=== PATIENT | female | born 1970 | race Caucasian/White ===

== ENCOUNTER 2020-06-08 08:32 | Emergency (ER) | payer OTHER, SELFPAY ==
[2020-06-08 08:33] VITALS: BP 93/61; PULSE 73; RESP 18; TEMP 36.8; O2SAT 95; BMI 31.7
[2020-06-08 08:40] VITALS: BP 93/61; PULSE 80; RESP 18; O2SAT 93
--- NOTE | 2020-06-08 08:40 | XR_ITS ---
WS: [id number] Exam: XR ankle LT min 3V* [id number] Date/Time of Exam: 06/08/2020 8:45 AM Reason For Exam: pain sweling There is a transverse fracture through the lower fibula with mild lateral displacement of the distal fragment. No other fractures are noted. The ankle mortise remains intact. Lateral soft tissue swellin g. XR/XR ankle LT min 3V* [id number] IMPRESSION: 1. Minimally displaced fracture of the distal fibula and soft tissue swelling.
--- NOTE | 2020-06-08 08:45 | W.ED.EXTPRO ---
HPI - Extremity Problem General: Chief complaint: Extremity Injury, Lower Stated complaint: Fall/left ankle pain Time Seen by Provider: 06/08/20 08:35 History of Present Illness: HPI Narrative: 49-year-old female presents to the emergency room with complaint of left ankle pain. She slept last night in the recliner evidently in a rather awkward position when she went to get up she had some numbness and tingling in her feet this is a fallen asleep . She tried to walk and actually had an inversion ankle injury of her left ankle she fell. She denies striking her head or losing consciousness or any other injury only complaint is the left ankle injury. Is she arrives by ambulance it is wrapped in an Kev wrap. Has mild swelling. MD Complaint: joint swelling and joint pain Onset (ago): minute(s) Pain Consistency: constant Location: left (Ankle) Quality: constant (Throbbing) Radiation: none Relieving factors: immobilization and rest Exacerbating factors: range of motion, weight bearing and palpation Associated symptoms: Deny arthralgias, chest pain, fever(s), myalgias, rash or short of breath Context: immobilization Review of Systems Const: Denies: fever(s) ENMT: Denies: throat pain, ear or mastoid pain, nasal discharge or nasal congestion Card: Denies: chest pain Resp: Denies: dyspnea, productive cough or non-productive cough GI: Denies: abdominal pain, nausea, vomiting, hematemesis, coffee ground emesis, diarrhea, constipation, bloating, hematochezia or melena : Denies: flank pain, difficulty voiding, dysuria, urinary frequency or urinary urgency Skin/Breast: Denies: rash Physical Exam Const: COMMON NORMALS: no acute distress GENERAL APPEARANCE: cooperative and comfortable ORIENTATION/CONSCIOUSNESS: Yes awake, Yes oriented to person, Yes oriented to place and Yes oriented to time HENMT: COMMON NORMALS: normocephalic, atraumatic and hearing grossly normal bilaterally HEAD & SCALP: normocephalic and atraumatic Neck/C-Spine: COMMON NORMALS: no JVD Resp: COMMON NORMALS: normal respiratory effort, No retractions, No use of accessory muscles and clear to auscultation bilaterally AUSCULTATION: clear to auscultation bilaterally Cardio: COMMON NORMALS: no JVD, regular rate, regular rhythm and No murmurs present (Cardio) RATE: regular rate RHYTHM: regular rhythm GI: COMMON NORMALS: Soft to palpation and No hepatosplenomegaly present AUSCULTATION: Yes normoactive bowel sounds PALPATION: Yes Soft to palpation, No Tenderness to palpation present (GI), No Guarding due to palpation present (GI) and Yes No hepatosplenomegaly present Extremity: NARRATIVE EXTREMITY EXAM: Throat swelling laterally some early ecchymosis already present x-ray shows fracture of the distal fibula with mild displacement. Neuro: SENSORIUM/ORIENTATION: Yes oriented to person, Yes oriented to place and Yes oriented to time Skin: COMMON NORMALS: no rashes or lesions noted GENERAL SKIN EXAM: no rashes or lesions noted Course Vital Signs: Vital signs: Vital Signs Temperature 98.4 F 06/08/20 09:44 Pulse Rate 68 06/08/20 09:44 Respiratory Rate 18 06/08/20 09:44 Blood Pressure 105/85 06/08/20 09:44 Pulse Oximetry 79 L 06/08/20 09:44 MDM - Extremity (Nontraumatic) MDM Narrative: Medical decision making narrative: Posterior splint applied nonweightbearing pain medications given crutches until released by Ortho will refer to Ortho or podiatry which ever is 1st available return if has problems. Discharge Plan Discharge Patient Disposition: Home Clinical Impression: Fracture of lateral malleolus of left ankle Condition: Stable Prescriptions: New hydrocodone-acetaminophen 5-325 mg tablet 1 tab PO Q6H PRN (Reason: pain) Qty: 20 RF: 0 Discharge Orders: Discharge ED (Routine); Ordered 06/08/20 Ordered By: Ketan Vargas Discharge Diet: Usual diet Discharge Activity: Limit activity as instructed Activity Restrictions/Additional Instructions: Management will arrange for follow-up through orthopedics. Coding Level of Care Code ED Pantograph Machine Operator for Vivienne Fwchloé Exam Comprehensive
[2020-06-08 09:44] VITALS: BP 105/85; PULSE 68; RESP 18; TEMP 36.9; O2SAT 79
--- NOTE | 2020-06-08 10:55 | DCPLANNER ---
Addendum entered by Makenna Christian 06/12/20 11:36: Patient called case worker and gave an updated phone number of [phone]. manager telemetry called the ortho clinic, spoke with Farzana, gave the clinic an updated phone number for patient. Addendum entered by Makenna Christian 06/09/20 09:09: Jen from ortho called case worker and informed case worker that clinic has not been able to reach patient to schedule an appointment. manager telemetry called patient at phone number [phone], unable to speak with or leave a voicemail patient with patient. Original Note: manager telemetry had message to schedule a follow up appointment for patient with ortho. manager telemetry called the ortho clinic, spoke with Jen, gave clinic patients information. manager telemetry was told that patients information would be printed and reviewed. Clinic will call patient with appointment information.
--- NOTE | 2020-06-16 11:28 | DCPLANNER ---
Patient had a follow up appointment scheduled for 06.15.20 with ortho - patient did attend appointment.
== END 2020-06-08 09:47 | disposition home or self-care (01) ==
PROVIDERS: Emergency Provider Family Medicine; PCP Nurse Practitioner Family
DX: S82.62XA Displaced fracture of lateral malleolus of left fibula, initial encounter for closed fracture (principal); X58.XXXA Exposure to other specified factors, initial encounter
CPT/HCPCS: 12345; 29105; 73610; 99281; 99283

== ENCOUNTER → 2020-06-15 12:56 | Outpatient (BNVA) | payer OTHER, SELFPAY | PROVIDERS: PCP Nurse Practitioner Family; Referring Provider Family Medicine; Visit Provider Podiatrist Foot & Ankle Surgery | DX: S82.62XA Displaced fracture of lateral malleolus of left fibula, initial encounter for closed fracture (principal); X58.XXXA Exposure to other specified factors, initial encounter | CPT/HCPCS: 73610 ==

== ENCOUNTER 2020-06-15 13:50 | Outpatient (CLI) | payer OTHER, SELFPAY | END 2020-06-15 13:51 | disposition home or self-care (01) | LOC: SPT 13:51 | PROVIDERS: PCP Nurse Practitioner Family; Visit Provider Podiatrist Foot & Ankle Surgery | DX: Z46.89 Encounter for fitting and adjustment of other specified devices (principal); S82.62XD Displaced fracture of lateral malleolus of left fibula, subsequent encounter for closed fracture with routine healing; X58.XXXD Exposure to other specified factors, subsequent encounter | CPT/HCPCS: 97760; L4361 ==

== ENCOUNTER 2020-06-19 06:43 | Day surgery (SDC) | payer OTHER, SELFPAY ==
[2020-06-18 15:03] VITALS: BMI 31.7
[2020-06-19] VITALS (9 sets, daily range): BP systolic 96–136; BP diastolic 59–81; PULSE 76–81; RESP 16–18; TEMP 36.4–36.6; O2SAT 93–98
--- NOTE | 2020-06-19 | SCC_ITS ---
Procedure Done: Open reduction internal fixation left distal fibular fracture CPT code 42116 4 seconds of fluoroscopic guidance, for a cumulative dose of 0.06 mGy, was provided to Dr. Arceo by the radiology department. C-arm images of the LEFT ankle were saved for the patient's permanent record. [facility]
--- NOTE | 2020-06-19 06:46 | P.HPUD_ITS ---
Surgery/Procedure H&P Update DATE OF PROCEDURE: June 19, 2020 DATE H&P PERFORMED: 06/15/20 H&P UPDATE INFORMATION: I have reviewed H&P completed within last 30 days, I have examined patient prior to procedure, No changes to prior documentation and H&P is in [facility] EMR on date indicated PREOP DIAGNOSIS: Left distal fibular fracture PLANNED PROCEDURE: Operation Date: 06/19/20 08:25 Proposed Procedures p ORIF Ankle ORIF Distal Fibular fracture Left 66836 S82.62XA(Left) - Mark Arceo DPM
[2020-06-19] MEDS: sodium chloride 0.9% 1,000 ML 30 ML IV (07:15)
[2020-06-19] MEDS: fentaNYL 50 mcg/mL INJ 2mL 100 MCG IVP (07:31)
[2020-06-19] MEDS: midazolam 1 mg/mL INJ 5 ML 5 MG IVP (07:31)
--- NOTE | 2020-06-19 07:41 | ANES.PREANE2 ---
Pre-Anesthetic Assessment Pre-Anesthetic Assessment: Height/Weight: Height 1.63 m Weight 83.915 kg Temp Pulse Resp BP Pulse Ox 97.5 F L 77 16 136/81 95 06/19/20 07:07 06/19/20 07:07 06/19/20 07:07 06/19/20 07:07 06/19/20 07:07 Preop Diagnosis: Left distal fibular fracture Proposed Procedure: Operation Date: 06/19/20 08:25 Proposed Procedures p ORIF Ankle ORIF Distal Fibular fracture Left 70069 S82.62XA(Left) - Mark Arceo DPM Familial anesthetic complications: PONV Was Beta Deandre taken within 24 hours: N/A Last intake: Intake Last Liquid Date 06/19/20 Last Liquid Time 04:45 Last Solid Date 06/18/20 Last Solid Time 18:00 Social: Social History: Tobacco and No alcohol Exam: Pre-Anes Outpt Exam: alert, oriented x 3, clear to auscultation bilaterally and regular rate & rhythm Airway: Cervical ROM: WNL MP: 3 Dentition: Full Neuropsych: Neuropsych: Seizure Comments: TBI w/ seizures Anesthetic Plan: Anesthesia: General and Regional (specify below) Risk of > 500 ml blood loss (7ml/kg in children): No Meds/Allergies Current Medications: Current Medications Generic Name Dose Route Start Last Admin Trade Name Freq PRN Reason Stop Dose Admin Sodium Chloride 1,000 mls @ 30 ml s/hr 06/19/20 07:00 06/19/20 07:15 Sodium Chloride 0.9% IV 06/20/20 06:59 30 mls/hr .Q24H JAI Administration PFSH Anesthesia PFSH: Medical History (Updated 06/19/20 @ 06:42 by Mark Arceo DPM) Anxiety Depression Traumatic brain injury Social History Smoking and tobacco status: current every day smoker Alcohol intake: current Alcohol intake frequency: holidays/special occasions only Female Reproductive History: Date of last menstrual period: 05/13/14 Data Anesthesia Cardiac Studies: No Data to Display
--- NOTE | 2020-06-19 07:43 | ANES.PROC ---
Anesthesia Procedures Procedure/Date: 06/19/20 Nerve Block ^: Nerve Block 1: Main Anesthesia: general anesthesia Time Out Performed: Yes Consent: requested by attending/covering physician, from patient, from other, risks and benefits reviewed and patient agrees to proceed Nerve block location: popliteal (L) Anesthesia monitors applied: pulse oximetry, EKG, BP cuff and oxygen Nerve block position: semi sitting Anesthetic Used: ropivicaine 0.5% and with decadron (4 mg) Amount of anesthesia used (mL): 30 Ultrasound used to: recognize landmarks Nerve Stimulator Used?: No Interscalene/Femoral BLK: 4 stimuplex 21 g needle used for position and inplane approach, visualize local anesthetic spread and no vascular puncture identified Injection: neg aspiration of heme Patient Tolerated Procedure: well and no complications Complications: none
[2020-06-19] MEDS: clindamycin 600 MG/50 ML PREMIX 100 MG IV (08:18)
--- NOTE | 2020-06-19 09:24 | XR_ITS ---
WS: [id number] Left ankle, 3 views, 06/19/2020 Clinical Data: post op Comparison: Left ankle, 06/15/2020. Findings: A lateral plate has been fixed to the distal left fibula with multiple orthopedic screws. There is a supporting boot about the ankle. There are subcutaneous surgical liza adjacent to the lateral mall eolus. XR/XR ankle LT min 3V* [id number] Impression: Internal fixation of fracture of the distal left fibula.
--- NOTE | 2020-06-19 09:24 | PM.OP ---
Operative Report Date of procedure: June 19, 2020 Pre-op Diagnosis: Left distal fibular fracture Post-op diagnosis: same Procedure Done: Open reduction internal fixation left distal fibular fracture CPT code 51501 Implants: [place] 28 anatomical fibular hook plate. [place] 28 2.7 mm locking screw x2. [place] 3.5 mm locking screw x4, [place] 3.5 mm nonlocking screw. 3-0 Vicryl, 4-0 Vicryl, skin liza Specimens removed/disposition: None Pathology: none sent Surgeon: Mark Arceo D.P.M. Satellite Communications Engineer: Robbie Cervantes Estimated blood loss: 5 mL Tourniquet time: 24 minutes IV fluids: None Urine output: None Complications: None Findings: Distal fibular fracture left no syndesmotic disruption Condition: stable Disposition: PACU Brief History: Ms. Sanabria is a pleasant 49-year-old female who fell down stairs fracturing her left distal fibula with displacement. I recommended open reduction internal fixation to allow reduction of the fracture fragment with rigid fixation allowing early range of motion and more predictable healing. Risks include pain, bleeding, numbness, infection, hardware rotation, hardware failure, delayed union, malunion, nonunion, likelihood of posttraumatic arthritis. Patient is agreeable wishes to proceed. Was interviewed in preop holding all questions answered to her satisfaction, informed consent signed, initialed her left foot and ankle, no guarantees written, expressed or implied. Procedure: Under mild sedation the patient was brought to the operating room and placed on the operating table in supine position. A timeout was performed. Anesthesia was then administered by the anesthesia service. Local anesthesia injected by myself consisting of 10 cc of 0.5 sent Marcaine plain right medial ankle. Well-padded pneumatic tourniquet applied to the left high calf. Left lower extremity was scrubbed, prepped and draped utilizing normal aseptic technique. Left lower extremity was examined a weighted with an Esmarch bandage and a tourniquet inflated to 250 mercury. Attention was directed to the lateral aspect of the left ankle where the lateral malleolus was palpated. Linear longitudinal incision was made over the distal fibula laterally through skin with a #15 blade. Dissection carried down through subcutaneous tissue and fat layer down to the level periosteum utilizing blunt and sharp technique. Care was taken to retract and preserve neurovascular and tendinous structures. All bleeders were ligated and cauterized as necessary. Linear periosteal incision was made fracture fragment was identified and evacuated of its hematoma utilizing curettage and saline flush. This was reduced followed by application of an anatomical [place] 28 fibular hook plate seating the hooks with a double tamp and utilizing the eccentric drill hole/compression hole filled with a 3.5 mm nonlocking screw. Excellent compression and reduction of the fracture site was confirmed with direct visualization as well as intraoperative fluoroscopy. 2 distal holes of the plate filled with 2.7 millimeter screws. Remaining 3 proximal filled with 3.5 mm locking screws and interfragmentary through the double-pronged hook screw placed utilizing standard AO technique with a 3.5 nonlocking screw with excellent bony apposition and compression noted. Intraoperative fluoroscopy confirmed excellent placement of hardware without violating the ankle mortise. Cotton hook test utilized demonstrated intact syndesmosis. Incision site was flushed with saline solution. Periosteum closed utilizing 3-0 Vicryl. Subcutaneous closed utilizing 4-0 Vicryl and skin closed utilizing liza. Incision site was dressed with Adaptic, sterile 4 x 4, Kerlix and Kev wrap followed by application of cam boot to the left lower extremity. Tourniquet was deflated and a prompt hyperemic response was noted to the distal digits of the left foot. Patient tolerated procedure well and was transferred to the PACU with vital signs stable and vascular status intact. Following a period of postoperative monitoring she will be discharged home is remain nonweightbearing and was given instructions on follow-up and at home care on discharge paperwork.
--- NOTE | 2020-06-19 15:27 | ANE.PACU2 ---
Inpatient post-anesthesia follow up: Airway intact: Yes Vital signs: Temperature 98 F Pulse Rate 76 Respiratory Rate 16 Blood Pressure 116/75 Pulse Oximetry 95 Oxygen Delivery Me thod Room Air Oxygen Flow Rate 6 Fraction of Inspir ed Oxygen Hydration adequate: Yes Nausea and vomiting: No Pain level: 1 Mental status: Baseline
== END 2020-06-19 10:35 | disposition home or self-care (01) ==
PROVIDERS: PCP Nurse Practitioner Family; Visit Provider Podiatrist Foot & Ankle Surgery
PROC: (CPT 27792; principal; 2020-06-19 08:25)
DX: S82.402A Unspecified fracture of shaft of left fibula, initial encounter for closed fracture (principal); W19.XXXA Unspecified fall, initial encounter; F17.210 Nicotine dependence, cigarettes, uncomplicated; F41.9 Anxiety disorder, unspecified; F32.9 Major depressive disorder, single episode, unspecified
CPT/HCPCS: 27792; 12345; 64450; 73610; 76000; 76942; 96365; 96374; 96375; C1713; J1100; J2250; J2405; J2704; J2710; J2795; J3010; J3490; J7030

== ENCOUNTER → 2020-06-26 10:10 | Outpatient (BNVA) | payer OTHER, SELFPAY | PROVIDERS: PCP Nurse Practitioner Family; Visit Provider Podiatrist Foot & Ankle Surgery | DX: S82.62XA Displaced fracture of lateral malleolus of left fibula, initial encounter for closed fracture (principal); X58.XXXA Exposure to other specified factors, initial encounter | CPT/HCPCS: 73610 ==

== ENCOUNTER → 2020-07-07 14:44 | Outpatient (BNVA) | payer OTHER, SELFPAY | PROVIDERS: PCP Nurse Practitioner Family; Visit Provider Podiatrist Foot & Ankle Surgery | DX: S82.62XA Displaced fracture of lateral malleolus of left fibula, initial encounter for closed fracture (principal); X58.XXXA Exposure to other specified factors, initial encounter | CPT/HCPCS: 73610 ==

== ENCOUNTER → 2020-07-16 13:04 | Outpatient (BNVA) | payer OTHER, SELFPAY | PROVIDERS: PCP Nurse Practitioner Family; Visit Provider Podiatrist Foot & Ankle Surgery | DX: Z98.890 Other specified postprocedural states (principal) | CPT/HCPCS: 73610 ==

== ENCOUNTER → 2020-08-03 10:36 | Outpatient (BNVA) | payer OTHER, SELFPAY | PROVIDERS: PCP Nurse Practitioner Family; Visit Provider Podiatrist Foot & Ankle Surgery | DX: Z98.890 Other specified postprocedural states (principal); S82.62XA Displaced fracture of lateral malleolus of left fibula, initial encounter for closed fracture; X58.XXXA Exposure to other specified factors, initial encounter | CPT/HCPCS: 73610 ==

== ENCOUNTER 2020-08-03 11:33 | Outpatient (CLI) | payer OTHER, SELFPAY | END 2020-08-03 11:34 | disposition home or self-care (01) | LOC: SPT 11:34 | PROVIDERS: PCP Nurse Practitioner Family; Visit Provider Podiatrist Foot & Ankle Surgery | DX: Z46.89 Encounter for fitting and adjustment of other specified devices (principal); S82.62XD Displaced fracture of lateral malleolus of left fibula, subsequent encounter for closed fracture with routine healing; X58.XXXD Exposure to other specified factors, subsequent encounter | CPT/HCPCS: 97760; L1902 ==